=== PATIENT | male | born 1960 | race Caucasian/White ===

== ENCOUNTER 2023-03-28 06:02 | Inpatient (IN) ==
--- NOTE | 2023-03-12 11:03 | PAT Medication Instructions ---
Medication Instructions Date of Service March 12, 2023 Home Medications aspirin 81 mg tablet,delayed release 81 mg PO QAM atorvastatin 20 mg tablet 20 mg PO HS buspirone 10 mg tablet 10 mg PO TID calcium carbonate 600 mg calcium (1,500 mg) tablet (Calcium) 600 mg PO QAM cholecalciferol (vitamin D3) 25 mcg (1,000 unit) capsule (Vitamin D3) 25 mcg PO PM citalopram 20 mg tablet 20 mg PO QAM cyanocobalamin (vitamin B-12) 1,000 mcg/mL injection solution 1,000 mcg subcut MONTHLY diltiazem HCl 120 mg tablet 120 mg PO BID ferrous sulfate 325 mg (65 mg iron) tablet 325 mg PO PM gabapentin 800 mg tablet 800 mg PO QID hydrocodone 5 mg-acetaminophen 325 mg tablet 1 tab PO HS lisinopril 20 mg tablet 20 mg PO QAM multivitamin 1 tab PO BID pantoprazole 40 mg tablet,delayed release 40 mg PO QAM ranolazine 500 mg tablet,extended release,12 hr 500 mg PO BID rivaroxaban 20 mg tablet (Xarelto) 20 mg PO HS Continue as directed cyanocobalamin (vitamin B-12) 1,000 mcg/mL injection solution 1,000 mcg subcut MONTHLY ASK your prescriber and surgeon rivaroxaban 20 mg tablet (Xarelto) 20 mg PO HS DO NOT take the morning of surgery calcium carbonate 600 mg calcium (1,500 mg) tablet (Calcium) 600 mg PO QAM lisinopril 20 mg tablet 20 mg PO QAM multivitamin 1 tab PO BID Take morning of surgery With a small sip of water, OTHERWISE NOTHING TO EAT OR DRINK AFTER MIDNIGHT: aspirin 81 mg tablet,delayed release 81 mg PO QAM (unless surgeon directed otherwise) buspirone 10 mg tablet 10 mg PO TID citalopram 20 mg tablet 20 mg PO QAM diltiazem HCl 120 mg tablet 120 mg PO BID gabapentin 800 mg tablet 800 mg PO QID pantoprazole 40 mg tablet,delayed release 40 mg PO QAM ranolazine 500 mg tablet,extended release,12 hr 500 mg PO BID Take evening before surgery atorvastatin 20 mg tablet 20 mg PO HS buspirone 10 mg tablet 10 mg PO TID cholecalciferol (vitamin D3) 25 mcg (1,000 unit) capsule (Vitamin D3) 25 mcg PO PM diltiazem HCl 120 mg tablet 120 mg PO BID ferrous sulfate 325 mg (65 mg iron) tablet 325 mg PO PM gabapentin 800 mg tablet 800 mg PO QID hydrocodone 5 mg-acetaminophen 325 mg tablet 1 tab PO HS multivitamin 1 tab PO BID ranolazine 500 mg tablet,extended release,12 hr 500 mg PO BID Other Notes If you have any questions please call us at [phone] or [phone] or [phone] or [phone]
--- NOTE | 2023-03-14 10:16 | Anesthesiology Consultation ---
Date of Service March 14, 2023 Assessment & Plan (1) Encounter for pre-operative examination: - Infectious disease screening: Per assessment on 03/12/23: No known infectious disease contacts or current infectious disease symptoms. No noted recent Covid positive test result. - Cardiology visit (03/07/23): " He anticipates having back surgery sometime this year. They are also working out the renal cyst and hydronephrosis that was incidentally found on MRI and ultrasound.. Patient, from a cardiovascular standpoint.. Stable condition. Follow-up in 6 months." - PCP visit (03/15/23): "Low risk" - PCP visit (02/05/23): " Benign essential hypertension stable, continue present meds.. Hydronephrosis, left.. Incidental finding on recent ultrasound. May be related to prostate hypertrophy. Will get CT to assess per radiology recommendation." > Spoke with patient- CT Abdomen/Pelvis is scheduled for 03/23 ([facility])- Awaiting report. Chart Review Chart Review: Patient seen in Pre Admission Testing Teaching & Discussion Pre-Anesthesia Teaching/Discussion Notes: Instructed NPO after midnight before surgery,except medications with 15 cc of water. Medication instructions provided according to the PAT guidelines. History Surgery Operation Date: 03/28/23 10:05 Proposed Procedures p L2-S1 Decomprssion and Fusion Spinal Cord Monitoring - Travis De Leon DO Height/Weight Height: 5 ft 9 in Weight: 117.2 kg Allergies Allergy/AdvReac Type Severity Reaction Status Date / Time No Known Allergies Allergy Verified 03/12/23 07:48 Medications Home Medications Medication Instructions Recorded Confirmed Last Taken aspirin 81 mg tablet,delayed 81 mg PO QAM 03/12/23 03/12/23 Unknown release atorvastatin 20 mg tablet 20 mg PO HS 03/12/23 03/12/23 Unknown buspirone 10 mg tablet 10 mg PO TID 03/12/23 03/12/23 Unknown calcium carbonate 600 mg calcium 600 mg PO QAM 03/12/23 03/12/23 Unknown (1,500 mg) tablet (Calcium) cholecalciferol (vitamin D3) 25 25 mcg PO PM 03/12/23 03/12/23 Unknown mcg (1,000 unit) capsule (Vitamin D3) citalopram 20 mg tablet 20 mg PO QAM 03/12/23 03/12/23 Unknown cyanocobalamin (vitamin B-12) 1,000 mcg subcut MONTHLY 03/12/23 03/12/23 Unknown 1,000 mcg/mL injection solution diltiazem HCl 120 mg tablet 120 mg PO BID 03/12/23 03/12/23 Unknown ferrous sulfate 325 mg (65 mg 325 mg PO PM 03/12/23 03/12/23 Unknown iron) tablet gabapentin 800 mg tablet 800 mg PO QID 03/12/23 03/12/23 Unknown hydrocodone 5 mg-acetaminophen 325 1 tab PO HS 03/12/23 03/12/23 Unknown mg tablet lisinopril 20 mg tablet 20 mg PO QAM 03/12/23 03/12/23 Unknown multivitamin 1 tab PO BID 03/12/23 03/12/23 Unknown pantoprazole 40 mg tablet,delayed 40 mg PO QAM 03/12/23 03/12/23 Unknown release ranolazine 500 mg tablet,extended 500 mg PO BID 03/12/23 03/12/23 Unknown release,12 hr rivaroxaban 20 mg tablet (Xarelto) 20 mg PO HS 03/12/23 03/12/23 Unknown Past Medical History Medical History Anemia Anxiety Aortic valve stenosis Echo 09/2022: Mild to moderate aortic stenosis (TYRESE 1.16-1.23cm2) Follows with Dr. 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) Hydronephrosis Hyperlipidemia Hypertension Osteoarthritis Pulmonary embolism 1998, felt "due to obesity" Exercise / Class Metabolic Activity III < 4 Walking/Shop/Light housework Past Family History Family History Mother Diabetes Past Surgical History Surgical History History of appendectomy History of cardiac cath 2014 > no stents 2008 > 2 stents History of carpal tunnel release bilat History of cholecystectomy 2019- hospitalized 34 days due to complicatons/nicked bile duct [facility] > got DVT as result of prolonged hospital stay History of colonoscopy 2020 History of esophagogastroduodenoscopy (EGD) History of Navneet-en-Y gastric bypass 2000 > lost 400 lbs since History of tonsillectomy History of tooth extraction History of total knee replacement R/L Hx of CABG 2009 > 2 vessels Hx of hernia repair left inguinal x 3, umblical x1 Hx of shoulder replacement bilat Past Anesthesia History No Hx of Anesthesia Complications and No Family Hx of Anesthesia Complications History of PONV No Hx of PONV and No Hx of Motion Sickness Social History Smoking Status: Current every day smoker Smoking cigarettes per day: less than 1/2 PPD Do You Dip or Chew Tobacco: No Hx Alcohol Use: No (No ETOH x 1+ years) Hx Substance Use: Yes substance use type: marijuana Substance Use Type Other:: very rare use > once in last 30 days but very rare Last Used Substance: Unknown Review of Systems Patient denies chest pain, shortness of breath, fever, chills, cough, wheezing, palpitations. Physical Exam Vital Signs VITALS BP 139/71 P 57 TEMP 98.3 SP02 97%RA RESP 18 PHYSICAL Full cervical extension range of motion. Full TMJ range of motion. TMD 3.5 finger breaths Mallampati Score 2 Dentition: 8 teeth remaining on lower, lower partial, full upper denture Lungs: clear throughout to auscultation Cardiac: regular rate and rhythm, II-III/ systolic murmur with carotid radiation Spine: normal Carotid arteries: negative bruit Extremities: + LE lymphedema Lab Results Anesthesia Preop Results Results Anesthesia Widget: WBC 5.58 K/ul (4.8-10.8) 03/14/23 Hgb 14.0 g/dl (14.0-18.0) 03/14/23 Hct 40.1 % (42.0-52.0) L 03/14/23 Plt 217 K/uL (130-400) 03/14/23 Na 137 mmol/L (136-145) 03/14/23 K 4.5 mmol/L (3.5-5.1) 03/14/23 Cl 106 mmol/L (98-107) 03/14/23 CO2 25 mmol/L (21-32) 03/14/23 BUN 12 mg/dl (6-23) 03/14/23 Creat 0.72 mg/dl (0.6-1.4) 03/14/23 Glucose Level 105 mg/dl (70-99(Fasting)) H 03/14/23 PT 11.8 Seconds (9.0-12.0) 03/14/23 PTT 33 Seconds (21-31) H 03/14/23 INR 1.1 (0.9-1.1) 03/14/23 Urine Color Yellow 03/14/23 Urine Appearance Clear (Clear) 03/14/23 Urine pH 6.0 (4.5-7.5) 03/14/23 Urine Specific [place] 1.006 (1.000-1.030) 03/14/23 Urine Protein Negative (Negative) 03/14/23 Urine Glucose (UA) Negative (Negative) 03/14/23 Urine Ketones Negative (Negative) 03/14/23 Urine Blood Negative (Negative) 03/14/23 Urine Nitrite Negative (Negative) 03/14/23 Urine Bilirubin Negative (Negative) 03/14/23 Urine Urobilinogen Negative (Negative) 03/14/23 Urine Leukocyte Esterase Negative (Negative) 03/14/23 Blood Type B Positive 03/14/23 Antibody Screen NEGATIVE 03/14/23 Testing Electrocardiogram Date: 03/14/23 SB with first degree AVB at 57bpm. NS TWA. Chest X-Ray Date: 01/07/23 Evidence of prior CABG. Lungs appear clear. Bilateral shoulder hardware is incompletely imaged. The lungs are hyperinflated and hyperlucent, secondary to emphysema. Multiple old leftsided rib fractures. Impression: Clear lungs. Stress Test Date: 10/18/22 Type: nuclear No evidence of reversible ischemia. No fixed or reversible defects noted. EF 57%.
[2023-03-28] MEDS ORDERED: MIDAZOLAM HCL 1 MG/ML 2ML VIAL ONE (06:57)
[2023-03-28] MEDS ORDERED: fentaNYL citrate PF 100 MCG/2 ML VIAL ONE (06:57)
[2023-03-28] MEDS ORDERED: DexMEDEtomidine HCL IV 100 MCG/ML VIAL IV ONE (07:00)
[2023-03-28] MEDS: LR 60ML/HR IV SCH (07:12)
[2023-03-28] MEDS ORDERED: ATROPINE SULFATE 0.1 MG/ML 10ML SYR IV PRN (07:22)
[2023-03-28] MEDS ORDERED: ePHEDrine sulfate 50 MG/ML AMP IV PRN (07:22)
[2023-03-28] MEDS ORDERED: ONDANSETRON INJ 2 MG/ML 2 ML VIAL IV PRN ×2 (07:22→13:46)
[2023-03-28] MEDS ORDERED: KETAMINE HCL 10MG/ML SYR ONE (07:23)
[2023-03-28] MEDS: GABAPENTIN 600 MG DOSE PO SCH (07:27)
[2023-03-28] MEDS: LR 15ML/HR IV SCH (07:27)
[2023-03-28] MEDS: ACETAMINOPHEN 500 MG TAB PO SCH (07:27)
[2023-03-28] MEDS: CeleBREX 200 MG CAP PO SCH (07:27)
--- NOTE | 2023-03-28 07:44 | History & Physical Bridge Note ---
Date of Service March 28, 2023 History & Physical Bridge Note I have examined the patient, reviewed the History & Physical and in the interval since the performance of the History & Physical I have noted the following changes of clinical significance: no changes noted
--- NOTE | 2023-03-28 07:45 | History & Physical Report ---
Date of Service March 28, 2023 Assessment & Plan (1) Neurogenic claudication due to lumbar spinal stenosis: Plan: L2-S1 decompression and fusion History of Present Illness Chief Complaint: Back and bilateral leg pain Primary Care Provider: Rhys Tucker MD This is a 63-year-old male who presents for chronic persistent back and leg pain and failing since course of nonoperative care is here for surgical invention. Allergies Allergy/AdvReac Type Severity Reaction Status Date / Time No Known Allergies Allergy Verified 03/28/23 06:52 Home Medications Medication Instructions Recorded Confirmed Type aspirin 81 mg tablet,delayed 81 mg PO QAM 03/12/23 03/28/23 History release atorvastatin 20 mg tablet 20 mg PO HS 03/12/23 03/28/23 History buspirone 10 mg tablet 10 mg PO TID 03/12/23 03/28/23 History calcium carbonate 600 mg calcium 600 mg PO QAM 03/12/23 03/28/23 History (1,500 mg) tablet (Calcium) cholecalciferol (vitamin D3) 25 25 mcg PO BID 03/12/23 03/28/23 History mcg (1,000 unit) capsule (Vitamin D3) citalopram 20 mg tablet 20 mg PO QAM 03/12/23 03/28/23 History cyanocobalamin (vitamin B-12) 1,000 mcg subcut MONTHLY 03/12/23 03/28/23 History 1,000 mcg/mL injection solution diltiazem HCl 120 mg tablet 120 mg PO BID 03/12/23 03/28/23 History ferrous sulfate 325 mg (65 mg 325 mg PO PM 03/12/23 03/28/23 History iron) tablet gabapentin 800 mg tablet 800 mg PO QID 03/12/23 03/28/23 History hydrocodone 5 mg-acetaminophen 325 1 tab PO HS 03/12/23 03/28/23 History mg tablet lisinopril 20 mg tablet 20 mg PO QAM 03/12/23 03/28/23 History multivitamin 1 tab PO BID 03/12/23 03/28/23 History pantoprazole 40 mg tablet,delayed 40 mg PO QAM 03/12/23 03/28/23 History release ranolazine 500 mg tablet,extended 500 mg PO BID 03/12/23 03/28/23 History release,12 hr rivaroxaban 20 mg tablet (Xarelto) 20 mg PO HS 03/12/23 03/28/23 History Past Med/Surg History Medical History Anemia Anxiety Aortic valve stenosis Echo 09/2022: Mild to moderate aortic stenosis (TYRESE 1.16-1.23cm2) Follows with Dr. 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) Hydronephrosis Hyperlipidemia Hypertension Osteoarthritis Pulmonary embolism 1998, felt "due to obesity" Surgical History History of appendectomy History of cardiac cath 2014 > no stents 2008 > 2 stents History of carpal tunnel release bilat History of cholecystectomy 2019- hospitalized 34 days due to complicatons/nicked bile duct [facility] > got DVT as result of prolonged hospital stay History of colonoscopy 2020 History of esophagogastroduodenoscopy (EGD) History of Navneet-en-Y gastric bypass 2000 > lost 400 lbs since History of tonsillectomy History of tooth extraction History of total knee replacement R/L Hx of CABG 2009 > 2 vessels Hx of hernia repair left inguinal x 3, umblical x1 Hx of shoulder replacement bilat Family History Mother Diabetes Social History Smoking Status: Current every day smoker Tobacco Type: Cigarettes Cigarettes Per Day: less than 1/2 PPD; Second Hand Exposure: No; Do You Dip or Chew Tobacco: No; Tobacco Cessation Education Requested by Patient: No Hx Alcohol Use: No (No ETOH x 1+ years) Hx Substance Use: Yes Last Used Substance: Unknown Substance Use Type Other:: very rare use > once in last 30 days but very rare Preferred Language: Indian Communication Ability: Effective Precision Lens Polisher Required: No Beliefs That Will Affect Care: None Current Living Situation: Spouse Other Information That Helps Us Care for You: No Feels Safe at Home: Yes Safety Concerns: Feels Safe At This Time Assistive Devices: Contacts, Denture - Upper and Denture - Lower Physical Exam Physical Exam: Patient is alert and oriented heart regular in rhythm Lungs clear Results & Data Results & Data Vital Signs (Past 12 Hours) Vital Signs Temp Pulse Resp BP Pulse Ox O2 Del Method 03/28/23 06:35 36.8 C 54 L 20 107/58 L 94 Room Air
[2023-03-28] MEDS: ceFAZolin 2000MG 2,000 MG/15 ML SYR IV SCH ×2 (07:53→15:47)
[2023-03-28] MEDS ORDERED: ePHEDrine sulfate 50 MG/5 ML SYR ONE ×2 (08:00→08:41)
[2023-03-28] MEDS ORDERED: HYDROmorphone INJ 2 MG/ML SYR/VIAL ONE (08:29)
[2023-03-28] MEDS ORDERED: ROCURONIUM BROMIDE 10 MG/ML 5 ML VIAL IV ONE ×2 (08:41→09:39)
[2023-03-28] MEDS ORDERED: LARYING-O-JET KIT (LTA) ONE (08:41)
[2023-03-28] MEDS ORDERED: PROPOFOL IV EMULSION 10 MG/ML 20 ML VIAL IV ONE (08:41)
[2023-03-28] MEDS ORDERED: VASOPRESSIN 20 UNIT/ML VIAL ONE (08:41)
[2023-03-28] MEDS ORDERED: DEXAMETHASONE SOD INJ 4 MG/ML VIAL ONE (08:41)
[2023-03-28] MEDS ORDERED: LIDOCAINE 2% 2 ML VIAL/AMP(20MG/ML) INFIL ONE (08:41)
[2023-03-28] MEDS ORDERED: ONDANSETRON INJ 2 MG/ML 2 ML VIAL ONE ×2 (08:41→11:30)
[2023-03-28] MEDS ORDERED: PHENYLEPHRINE 100MCG/ML 10ML SYR IV ONE (08:41)
[2023-03-28] MEDS ORDERED: PHENYLEPHRINE HCL 10 MG/ML VIAL ONE (08:41)
[2023-03-28] MEDS: BUPIVACAINE/EPINEPHRINE 0.5% MPF 1:200,000 30 ML VIAL ONE (08:58)
[2023-03-28] MEDS: ceFAZolin 330 MG/ML 1 GM VIAL ONE (08:58)
[2023-03-28] MEDS ORDERED: SUGAMMADEX SODIUM 200 MG/2 ML VIAL IV ONE (10:48)
--- NOTE | 2023-03-28 11:34 | Operative Report ---
Post Operative Report Pre & Post Diagnosis Operation Date: 03/28/23 07:45 Pre-Op Diagnosis: Spinal Stenosis Lumbar Region with Neurogenic Claudication Post-Op Diagnosis: Spinal Stenosis Lumbar Region with Neurogenic Claudication I identified the patient and participated in the time-out.: Yes Procedure Operation Date: 03/28/23 07:45 Actual Procedures #1 lumbar decompression bilaterally facetectomies and foraminotomies L2-L3, L3- L4, L4-5 and L5-S1. #2 posterior spinal fusion L2-S1. #3 placed posterior segmental instrumentation L2-S1. #4 interbody fusion L4-5 L5-S1. #5 placement spiral 10 x 26 mm L4-5 and 12 x 26 mm x 2 at L5-S1. #6 placement locally harvested morselized autograft and posterior gutters. #7 placement of infuse collagen sponge combined with Koros in the posterior gutters interbody space. Surgeon Travis De Leon, DO Support Assistant Kailyn Arora Estimated Blood Loss 650 Findings See Below Patient is 5 foot 9 weighing over 115 kg with a BMI in excess of 35. This combined with an EBL of greater than 650 cc created significant technical difficulty. This at least 50% increased operative time. Specimens None Indications This is a 63-year-old male presents problems diagnosis the failing course of nonoperative care is here for surgical invention. Description of Procedure Patient was met with identified informed consent obtained. Patient was then taken the operative suite underwent patient placed in a prone position on the [place] table topicals and frame. All bony promises well-padded eyes inspected to ensure no external precipice spinal. This point lumbar spine was prepped and draped in a sterile fashion. Sharp dissection with the assistance bradycardia form down to and exposing the lamina and transverse processes of L2-L3 L4-5 and sacral ala bilaterally. From caudal to cephalad fashion complete laminectomy of L5 L4 L3 and L2 was performed including bilateral medial facetectomies and foraminotomies addressing severe spinal stenosis. Pedicle screws were then placed in L2-L3 L4-5 and S1 levels bilaterally with assistance of fluoroscopy and appropriate size deepa contoured and placed. Bilateral transforaminal approach on the right discectomy L5-S1 was performed endplates guarded to subcortical and bone and a 12 x 26 mm Spira cage filled with Koros bone graft tapped in position. Then proceeded to the left transforaminal region at L5-S1 completed the discectomy curetted the endplates to subcortical bleeding bone and placed a second 12 x 26 mm Spira cage filled with Koros into position. Then proceeded to L4-L5 and bilateral transforaminal approach the left we discectomy performed endplates guarded to subcortical bleeding bone and 11 x 26 mm Spira cage filled with Koros tapped in position. Process rods and locked in position bilaterally. The transverse processes of L2-L3 L4-5 and the sacral ala burred to subcortical bleeding bone. Infuse collagen sponge combined with Koros and locally harvested morselized graft placed in posterior gutters. 15 round DERECK inserted. Incision was then closed with 1 Vicryl fascia 2-0 Vicryl subcutaneously and 4 Monocryl for fascial closure. Steri-Strips sterile dressings placed. Patient waken taken to PACU in stable condition. Please note spinal cord monitoring was utilized at the procedure no changes noted. Lastly Kailyn Arora was present at the entire surgeon with the patient positioning complex portion of the surgeon fashion closure. I attest to the content of the Intraoperative Record and any orders documented therein. Any exceptions are noted below.
--- NOTE | 2023-03-28 11:43 | Fluoroscopy Report ---
FL lumbar spine 2-3V CLINICAL HISTORY: L2-S1 Decompression/fusion COMPARISON STUDY: None. FLUOROSCOPY TIME: 40 seconds. Ka, r: 37.03 mGy FLUOROSCOPIC IMAGES: 5 FINDINGS: Fluoroscopy was provided during posterior decompression. L4-L5 and L5-S1 discectomies with interbody spacer placement. There are bilateral pedicle screws at the L2, L3, L4, L5 and S1 levels. I nterconnecting rods are present. Hardware is intact. IMPRESSION: Fluoroscopy provided during L2-S1 decompression and fusion with L4-L5 and L5-S1 discecto mies. ACT 112: Negative or not required by law. Electronically signed by: Donovan Rachel M.D. 03/28/2023 11:42 AM
[2023-03-28] MEDS: FLOSEAL HEMOSTATIC MATRIX 10ML TOP ONE (11:47)
[2023-03-28] MEDS: HYDROmorphone INJ 1 MG/ML SYRINGE IV PRN (12:02)
--- NOTE | 2023-03-28 13:04 | Anesthesiology Progress Note ---
Date of Service March 28, 2023 Anesthesia Post Procedure Vital Signs Vital Signs: Temp Pulse Resp BP Pulse Ox O2 Del Method O2 Flow Rate 03/28/23 12:50 76 17 105/64 96 Nasal Cannula 3 03/28/23 12:40 74 12 113/65 95 Nasal Cannula 3 03/28/23 12:30 71 12 104/66 95 Nasal Cannula 3 03/28/23 12:20 75 15 116/64 92 Nasal Cannula 3 03/28/23 12:10 77 20 110/58 L 97 Nasal Cannula 3 03/28/23 12:00 73 12 114/64 98 Oxymask 03/28/23 11:50 36.3 C L 77 13 123/66 98 Oxymask 03/28/23 06:35 36.8 C 54 L 20 107/58 L 94 Room Air Pain Intensity Lower Back: Pain Intensity: 5 Transfer of Care Handoff Completed per policy Notes Mental Status: alert / awake / arousable Patient Amnestic to Procedure: Yes Nausea / Vomiting: adequately controlled Pain: adequately controlled Airway Patency, RR, SpO2: stable & adequate BP & HR: stable & adequate Hydration State: stable & adequate Anesthetic Complications: no major complications apparent and Pt Satisfied with anesthetic care
[2023-03-28] MEDS ORDERED: ACETAMINOPHEN 1,000 MG/100 ML VIAL IV PRN (13:46)
[2023-03-28] MEDS ORDERED: diphenhydrAMINE Capsule 25 MG CAP PO PRN (13:46)
[2023-03-28] MEDS ORDERED: hydrOXYzine HCl 25 MG TAB PO PRN (13:46)
[2023-03-28] MEDS ORDERED: ALUMINUM/MAGNESIUM SUSP 30 ML UDC PO PRN (13:46)
[2023-03-28] MEDS ORDERED: DO NOT ADMINISTER PNEUMOCOCCAL VACCINE PRN (13:46)
[2023-03-28] MEDS ORDERED: HYDROmorphone INJ 0.5 MG/0.5 ML SYR IV PRN (13:46)
[2023-03-28] MEDS ORDERED: DO NOT ADMINISTER FLU VACCINE PRN (13:46)
[2023-03-28] MEDS ORDERED: traMADol HCL 50 MG TABLET PO PRN (13:46)
[2023-03-28] MEDS ORDERED: HYDROmorphone INJ 1 MG/ML SYRINGE IV PRN (13:46)
[2023-03-28] MEDS ORDERED: PROMETHAZINE HCL 12.5 MG in SODIUM CHLORIDE 0.9% 50 ML IV PRN (13:46)
[2023-03-28] MEDS ORDERED: METOCLOPRAMIDE HCL INJ 5 MG/ML 2 ML VIAL IV PRN (13:46)
[2023-03-28] MEDS ORDERED: LORazepam 0.5 MG in SYRINGE 0.25 ML IV PRN (13:46)
[2023-03-28] MEDS ORDERED: LORazepam 0.5 MG TAB PO PRN (13:46)
[2023-03-28] MEDS ORDERED: MAGNESIUM HYDROXIDE SUSP 30 ML UDC PO PRN (13:46)
[2023-03-28] MEDS ORDERED: NALOXONE HCL 0.4 MG/1 ML VIAL/CARP IV PRN (13:46)
[2023-03-28] MEDS ORDERED: ONDANSETRON 4 MG OD TAB PO PRN (13:46)
[2023-03-28] MEDS ORDERED: FAMOTIDINE 20 MG TAB PO PRN (13:46)
[2023-03-28] MEDS ORDERED: bisacodyL 10 MG SUPP PR PRN (13:46)
[2023-03-28] MEDS ORDERED: SOD PHOSPHATE/SOD BIPHOSPHATE ENEMA 132 ML BTL PR PRN (13:46)
[2023-03-28] MEDS: oxyCODONE HCL IR 5 MG TAB (IMMEDIATE RELEASE) PO PRN (14:31)
[2023-03-28] MEDS: LACTATED RINGER'S 1,000 ML IV SCH (15:16)
[2023-03-28] MEDS: GABAPENTIN 800 MG TAB PO SCH (15:47)
[2023-03-28] MEDS: busPIRone 5 MG TAB PO SCH (15:47)
--- NOTE | 2023-03-28 17:53 | Hospitalist Consultation ---
Date of Consultation March 28, 2023 Assessment & Plan (1) Status post lumbar spinal fusion: -Patient is currently Post-op day #0 S/P L2-S1 Decompression and Fusion with Dr. De Leon -Pain control, perioperative abx, DVT PPX, and IV fluids per the primary team -Patient was noted to have approximately 650 CC of EBL per the operative report and is having increased drainage at the surgical site per nursing staff, primary team has been made aware -He has been stable since arrival to the floor and has been able to ambulate with the use of a rolling walker without issue -He had as dose of 81 mg Aspirin this am and is scheduled to be give 81 mg Aspirin tomorrow per the primary team's orders -Patient is high risk for blood clots with his previous hx of DVT/PE and current smoking status, would recommend restarting Xarelto when he is stable from a bleeding perspective -Agree with AM CBC and BMP tomorrow, we will follow -Please reach out with any questions or concerns, medicine will continue to follow (2) DVT (deep venous thrombosis): -Previous DVT in 2019; see HPI -Continue DVT PPX per primary team orders -Monitor closely for post-operative DVT moving forward and restart Xarelto when patient is stable from a bleeding risk (3) CAD (coronary artery disease): -S/P CABG x 2 in 2009 -Denies recent chest pain -Continue Aspirin and statin (4) Hypertension: -Stable -Will hold home lisinopril for now to avoid post-operative hypotension -Will continue BID diltiazem (5) Hyperlipidemia: -Conitnue statin (6) Tobacco abuse: -Will order Nicotine patches -Continue to stress the importance of cessation -Incentive spirometry and prn albuterol ordered at the time of the consult Plan The patient was discussed with Dr. Camarena at the time of the consult Supervising Physician Co-Signing Physician Notes I personally saw and examined the patient. I verified all medrano points and agree with Esdras Castillo PA-C with the following exceptions and/or additions: 63-year-old male postop day 0 lumbar decompression and posterior spinal fusion. EBL 650ml. O/E HS RRR, FLEX loudest in LUSB (known per patient), Chest CTAB, Abdo SNT A/P VTE/bowel/pain management per primary orthopedic team. No change to plan as abov e History of Present Illness Reason for Consultation: Post-op medical management Requesting Physician: Travis De Leon DO Attending Physician: Dr. Amarjit Camarena History of Present Illness Mal is a 63 year old male with a PMH significant for Aortic stenosis, DVT in 2019 after a prolonged and complicated hospitalization (Now on Xarelto), HTN, BPH, CAD S/P CABG X 2 in 2009, depression, and current tobacco abuse who presented to the [facility] OR on 03/28/23 for L2-S1 Decompression and Fusion, Spinal Cord Monitoring with Dr. De Leon. Per the operative report, EBL was listed as 650 cc, anesthesia type was not listed, and there were not reported intraoperative complications. At the time of the exam the patient was sitting on the side of his bed, in no acute distress. He is currently having his surgical site re-bandaged as he had increased bleeding post-op. His nurses confirm that the surgical team was made aware of this. He has otherwise been doing well post-op. He denies new or worsening neurologic symptoms since his surgery earlier today. When asked, he states that he has been smoking 1PPD for the past 7 years but wants to start smoking cessation today. His CABG was in 2009, he did have a negative stress echo for cardiac clearance prior to his surgery. He states that his DVT in 2019 occurred after a complicated cholecystectomy. He states that he was hospitalized for 3 weeks and was very sedentary after. At that time he had been on aspirin and plavix; he was switched to Xarelto after the DVT. He took his aspirin, buspar, diltiazem, pantoprazole this am but has been holding his Xarelto as recommended. He currently denies fever, chills, chest pain, SOB, cough, abd pain, nausea, vomiting, diarrhea, dysuria, hematuria, melena. Please refer to Dr. Camarena's attestation for any changes to the treatment plan Allergies Allergy/AdvReac Type Severity Reaction Status Date / Time No Known Allergies Allergy Verified 03/28/23 06:52 Home Medications Medication Instructions Recorded Confirmed Type aspirin 81 mg tablet,delayed 81 mg PO QAM 03/12/23 03/28/23 History release atorvastatin 20 mg tablet 20 mg PO HS 03/12/23 03/28/23 History buspirone 10 mg tablet 10 mg PO TID 03/12/23 03/28/23 History calcium carbonate 600 mg calcium 600 mg PO QAM 03/12/23 03/28/23 History (1,500 mg) tablet (Calcium) cholecalciferol (vitamin D3) 25 25 mcg PO BID 03/12/23 03/28/23 History mcg (1,000 unit) capsule (Vitamin D3) citalopram 20 mg tablet 20 mg PO QAM 03/12/23 03/28/23 History cyanocobalamin (vitamin B-12) 1,000 mcg subcut MONTHLY 03/12/23 03/28/23 History 1,000 mcg/mL injection solution diltiazem HCl 120 mg tablet 120 mg PO BID 03/12/23 03/28/23 History ferrous sulfate 325 mg (65 mg 325 mg PO PM 03/12/23 03/28/23 History iron) tablet gabapentin 800 mg tablet 800 mg PO QID 03/12/23 03/28/23 History hydrocodone 5 mg-acetaminophen 325 1 tab PO HS 03/12/23 03/28/23 History mg tablet lisinopril 20 mg tablet 20 mg PO QAM 03/12/23 03/28/23 History multivitamin 1 tab PO BID 03/12/23 03/28/23 History pantoprazole 40 mg tablet,delayed 40 mg PO QAM 03/12/23 03/28/23 History release ranolazine 500 mg tablet,extended 500 mg PO BID 03/12/23 03/28/23 History release,12 hr rivaroxaban 20 mg tablet (Xarelto) 20 mg PO HS 03/12/23 03/28/23 History oxycodone 5 mg tablet 5 mg PO Q6H PRN pain #30 tabs 03/29/23 Rx tramadol 50 mg tablet 50 mg PO Q6H PRN pain, moderate 03/29/23 Rx #30 tabs Patient History Medical History (Updated 03/29/23 @ 17:20 by Kellie Castañeda MD) CAD (coronary artery disease) CABG x2 (2009) History of infection with vancomycin-resistant Enterococcus Hx VRE ([facility] ) Anemia Pulmonary embolism 1998, felt "due to obesity" Chronic acquired lymphedema Degenerative disc disease Osteoarthritis Hydronephrosis GERD (gastroesophageal reflux disease) Anxiety Depression Aortic valve stenosis Echo 09/2022: Mild to moderate aortic stenosis (TYRESE 1.16-1.23cm2) Follows with Dr. Matos at [facility] DVT (deep venous thrombosis) 2019, r/t surgical complication/prolonged hospital stay Hyperlipidemia Hypertension History of COVID-19 02/2021, not hospitalized Surgical History (Updated 03/28/23 @ 18:26 by Esdras Castillo PA-C) History of carpal tunnel release bilat History of tonsillectomy History of appendectomy Hx of hernia repair left inguinal x 3, umblical x1 History of esophagogastroduodenoscopy (EGD) History of colonoscopy 2020 History of tooth extraction Hx of shoulder replacement bilat History of total knee replacement R/L History of Navneet-en-Y gastric bypass 2000 > lost 400 lbs since History of cardiac cath 2014 > no stents 2008 > 2 stents History of cholecystectomy 2019- hospitalized 34 days due to complicatons/nicked bile duct [facility] > got DVT as result of prolonged hospital stay Hx of CABG 2009 > 2 vessels Family History Mother Diabetes Social History Smoking Status: Current every day smoker Tobacco Type: Cigarettes Cigarettes Per Day: less than 1/2 PPD; Second Hand Exposure: No; Do You Dip or Chew Tobacco: No; Hx Alcohol Use: No (No ETOH x 1+ years) Hx Substance Use: Yes Last Used Substance: Unknown Substance Use Type Other:: very rare use > once in last 30 days but very rare Preferred Language: Serbian Communication Ability: Effective Recreation Program Coordinator Required: No Beliefs That Will Affect Care: None Current Living Situation: Spouse Feels Safe at Home: Yes Assistive Devices: Cane and Walker Physical Exam Physical Exam: Physical Exam: General: In no acute distress, stated age, chronically ill appearing but non- toxic HEENT: Normocephalic, atraumatic, no scleral icterus, pupils around round, symmetrical, and reactive to light, moist mucus membranes, trachea midline, no thyromegaly Chest/Pulm: No respiratory distress, symmetrical chest expansion, scattered expiratory wheezing Cardiac: RRR, 3/6 systolic murmur noted Abdomen: Negative for ascites and bruising, normoactive bowel sounds, soft, non-tender to palpation throughout : Bailon cath in place, currently draining clear, yellow urine Musculoskeletal: Lower lumbar surgical site is currently bandaged with the lower 1/3 of the bandage soaked in blood, drain is currently in place and approximately 1/2 full Extremities: Radial, dorsalis pedis, and posterior tibial pulses are intact and symmetrical, no edema [facility] Skin: No other trauma noted on exam Neuro: Alert and oriented to person, place, month, year, and president, no focal defects, no tremors noted, intact and symmetrical sensation and motor function in the [facility] Psych: No acute distress, calm and cooperative during the exam Results & Data Results & Data Vital Signs (Past 12 Hours) Vital Signs Temp Pulse Pulse Resp BP Pulse Ox O2 Del Method 03/28/23 15:15 Nasal Cannula 03/28/23 15:06 37 C 68 18 122/63 97 Room Air 03/28/23 14:00 77 18 103/78 96 Nasal Cannula 03/28/23 13:45 82 16 108/57 L 95 Nasal Cannula 03/28/23 13:30 79 14 112/69 95 Nasal Cannula 03/28/23 13:20 69 14 105/64 92 Nasal Cannula 03/28/23 13:10 73 15 112/64 95 Nasal Cannula 03/28/23 13:00 36.4 C L 69 14 106/68 96 Nasal Cannula 03/28/23 12:50 76 17 105/64 96 Nasal Cannula 03/28/23 12:40 74 12 113/65 95 Nasal Cannula 03/28/23 12:30 71 12 104/66 95 Nasal Cannula 03/28/23 12:20 75 15 116/64 92 Nasal Cannula 03/28/23 12:10 77 20 110/58 L 97 Nasal Cannula 03/28/23 12:00 73 12 114/64 98 Oxymask 03/28/23 11:50 36.3 C L 77 13 123/66 98 Oxymask 03/28/23 06:35 36.8 C 54 L 20 107/58 L 94 Room Air O2 Flow Rate 03/28/23 15:15 1 03/28/23 15:06 03/28/23 14:00 2 03/28/23 13:45 2 03/28/23 13:30 2 03/28/23 13:20 2 03/28/23 13:10 2 03/28/23 13:00 2 03/28/23 12:50 3 03/28/23 12:40 3 03/28/23 12:30 3 03/28/23 12:20 3 03/28/23 12:10 3 03/28/23 12:00 03/28/23 11:50 03/28/23 06:35 Laboratory Results Abnormal lab results 03/28/23 Range/Units 06:34 Crossmatch See Detail Diagnostic Findings Lumbar Spine X-Ray 03/28/23 07:00 FL lumbar spine 2-3V CLINICAL HISTORY: L2-S1 Decompression/fusion COMPARISON STUDY: None. FLUOROSCOPY TIME: 40 seconds. Ka, r: 37.03 mGy FLUOROSCOPIC IMAGES: 5 FINDINGS: Fluoroscopy was provided during posterior decompression. L4-L5 and L5- S1 discectomies with interbody spacer placement. There are bilateral pedicle screws at the L2, L3, L4, L5 and S1 levels. Interconnecting rods are present. Hardware is intact. IMPRESSION: Fluoroscopy provided during L2-S1 decompression and fusion with L4- L5 and L5-S1 discectomies. ACT 112: Negative or not required by law. Electronically signed by: Donovan Rachel M.D. 03/28/2023 11:42 AM PG Care Time/CCT Total # of Minutes Spent Total Time Spent with Patient: Total time spent is greater than 50% in coordination of care (as documented) at patient's floor/unit and/or counseling patient: [place] [address] IN/OBS CONSULT LVL 3,45M Patient Type New Medical Decision Making High Complexity Diagnoses Status post lumbar spinal fusion Z98.1 DVT (deep venous thrombosis) I82.409 CAD (coronary artery disease) I25.10 Hypertension I10 Hyperlipidemia E78.5 Tobacco abuse Z72.0
[2023-03-28] MEDS ORDERED: ALBUTEROL 0.5% NEB SOLN 2.5 MG/0.5 ML VIAL NEB PRN (18:34)
[2023-03-28] MEDS: NICOTINE 21 MG/24 HR TDSY TD SCH (19:07)
[2023-03-28] MEDS: ATORVASTATIN 20 MG TAB PO SCH (20:01)
[2023-03-28] MEDS: MULTIVITAMIN TAB PO SCH (20:02)
[2023-03-28] MEDS: RANOLAZINE 500 MG ER TAB PO SCH (20:02)
[2023-03-28] MEDS: CHOLECALCIFEROL 25 MCG (1000 UNITS) TAB PO SCH (20:03)
[2023-03-28] MEDS: DOCUSATE SODIUM/SENNA 50/8.6MG TAB PO SCH (20:03)
[2023-03-28] MEDS: FERROUS SULFATE 325 MG TAB PO SCH (20:04)
[2023-03-28] MEDS: dilTIAZem HCL 120 MG CAPCR PO SCH (20:05)
[2023-03-28] MEDS: ACETAMINOPHEN 500 MG TAB PO PRN (23:00)
[2023-03-29] MEDS: POLYETHYLENE (MIRALAX) 17 GM PACK PO SCH (06:04)
[2023-03-29 06:53] LABS: Basophils # (auto) 0.01 K/uL (0.00-0.20); Basophils % (auto) 0.1 %; Eosinophils # (auto) 0.05 K/uL (0.00-0.50); Eosinophils % (auto) 0.5 %; Hematocrit (blood only) 29.8 % (42.0-52.0); Hemoglobin 10.2 g/dl (14.0-18.0); Immature Granulocytes # (auto) 0.02 K/uL (0.01-0.20); Immature Granulocytes % (auto) 0.2 %; Lymphocytes # (auto) 0.92 K/uL (1.20-3.40); Lymphocytes % (auto) 10.1 %; Mean Corpuscular Hemoglobin 32.6 pg (25.0-34.0); Mean Corpuscular Hgb Conc 34.2 g/dL (32.0-36.0); Mean Corpuscular Volume 95.2 fL (80.0-100.0); Mean Platelet Volume 10.2 fL (9.4-12.4); Monocytes # (auto) 0.64 K/uL (0.11-0.59); Neutrophils # (auto) 7.47 K/uL (1.40-6.50); Neutrophils % (auto) 82.1 %; Platelet Count 167 K/uL (130-400); RDW Coefficient of Variation 12.5 % (11.5-14.5); Red Blood Count 3.13 M/uL (4.70-6.10); White Blood Count 9.11 K/ul (4.8-10.8)
[2023-03-29 07:05] LABS: BUN Creatinine Ratio 20.6 (10-20); Creatinine Clr Calc Pharmacy 142.8 ml/min; Est GFR (African American) 119.5 ml/min; Est GFR (Non-African American) 103.1 ml/min; Potassium 3.8 mmol/L (3.5-5.1)
[2023-03-29] MEDS: SODIUM CHLORIDE 0.9% 500 ML IV SCH (07:51)
[2023-03-29] MEDS: dexAMETHasone 6 MG in SYRINGE 0 ML IV SCH (08:10)
[2023-03-29] MEDS: ASPIRIN 81 MG ECTAB PO SCH (08:16)
[2023-03-29] MEDS: CALCIUM CARBONATE 1250MG TAB PO SCH (08:17)
[2023-03-29] MEDS: PANTOprazole 40 MG TAB PO SCH (08:17)
[2023-03-29] MEDS: CITALOPRAM 20 MG TAB PO SCH (08:17)
--- NOTE | 2023-03-29 08:37 | Orthopedic Progress Note ---
Date of Service March 29, 2023 Assessment & Plan (1) Neurogenic claudication due to lumbar spinal stenosis: Plan: At this time initiate physical therapy monitor his DERECK operatively discharge home in the next few days. Admission and Anticipated Discharge Date Admission Date: March 28, 2023 Subjective Back pain controlled leg pain improved Physical Exam Physical Exam: Patient is sitting up in bed. Is comfortable. Is constricted testing. Results & Data Vital Signs (Past 12 Hours) Vital Signs Temp Pulse Resp BP BP Pulse Ox O2 Del Method 03/29/23 07:27 36.6 C 76 16 91/50 L 97 Room Air 03/29/23 04:16 37.1 C 69 18 97/55 L 96 Room Air 03/28/23 22:47 36.7 C 69 18 106/61 96 Room Air Queries Orthopedic Spine Obesity: Yes
--- NOTE | 2023-03-29 17:23 | Hospitalist Progress Note ---
Date of Service March 29, 2023 Assessment & Plan (1) Status post lumbar spinal fusion: Plan: -Patient is currently Post-op day #0 S/P L2-S1 Decompression and Fusion with Dr. De Leon -Pain control, perioperative abx, DVT PPX, and IV fluids per the primary team -Patient was noted to have approximately 650 CC of EBL per the operative report and is having increased drainage at the surgical site per nursing staff, primary team has been made aware -He has been stable since arrival to the floor and has been able to ambulate with the use of a rolling walker without issue -He had as dose of 81 mg Aspirin this am and is scheduled to be give 81 mg Aspirin tomorrow per the primary team's orders -Patient is high risk for blood clots with his previous hx of DVT/PE and current smoking status, would recommend restarting Xarelto when he is stable from a ble eding perspective -Agree with AM CBC and BMP tomorrow, we will follow -Please reach out with any questions or concerns, medicine will continue to follow (2) DVT (deep venous thrombosis): Plan: -Previous DVT in 2019; see HPI -Continue DVT PPX per primary team orders -Monitor closely for post-operative DVT moving forward and restart Xarelto when patient is stable from a bleeding risk (3) CAD (coronary artery disease): Plan: -S/P CABG x 2 in 2009 -Denies recent chest pain -Continue Aspirin and statin (4) Hypertension: Plan: -Stable -Will hold home lisinopril for now to avoid post-operative hypotension -Will continue BID diltiazem (5) Hyperlipidemia: Plan: -Conitnue statin (6) Tobacco abuse: Plan: -Will order Nicotine patches -Continue to stress the importance of cessation -Incentive spirometry and prn albuterol ordered at the time of the consult Plan The patient is doing well, had a low BP this morning, BP meds on hold, IV fluids were given. Monitor CBC, has blood loss anemia, start iron, transfuse PRN Admission and Anticipated Discharge Date Admission Date: March 28, 2023 Subjective Back pain controlled, report legs weakness Review of Systems Review of Systems: reports legs weakness, denies numbness, ambulated with PT Physical Exam Physical Exam: General: In no acute distress, stated age, chronically ill appearing but non- toxic HEENT: Normocephalic, atraumatic, no scleral icterus, pupils around round, symmetrical, and reactive to light, moist mucus membranes, trachea midline, no thyromegaly Chest/Pulm: No respiratory distress, symmetrical chest expansion, scattered expiratory wheezing Cardiac: RRR, 3/6 systolic murmur noted Abdomen: Negative for ascites and bruising, normoactive bowel sounds, soft, non- tender to palpation throughout : Bailon cath in place, currently draining clear, yellow urine Musculoskeletal: Lower lumbar surgical site is currently bandaged with the lower 1/3 of the bandage soaked in blood, drain is currently in place and approximately 1/2 full Extremities: Radial, dorsalis pedis, and posterior tibial pulses are intact and symmetrical, no edema noted in the [facility] Skin: No other trauma noted on exam Neuro: Alert and oriented to person, place, month, year, and president, no focal defects, no tremors noted, intact and symmetrical sensation and motor function in the [facility] Psych: No acute distress, calm and cooperative during the exam Results & Data Results & Data Vital Signs (Past 12 Hours) Vital Signs Temp Pulse Resp BP Pulse Ox O2 Del Method 03/29/23 15:22 36.7 C 72 16 108/62 96 Room Air 03/29/23 11:39 36.7 C 65 16 118/65 96 Room Air 03/29/23 07:27 36.6 C 76 16 91/50 L 97 Room Air Laboratory Results Abnormal lab results 03/29/23 Range/Units 05:26 RBC 3.13 L (4.70-6.10) M/uL Hgb 10.2 L (14.0-18.0) g/dl Hct 29.8 L (42.0-52.0) % Neut # (Auto) 7.47 H (1.40-6.50) K/uL Lymph # (Auto) 0.92 L (1.20-3.40) K/uL Hardin # (Auto) 0.64 H (0.11-0.59) K/uL BUN/Creatinine Ratio 20.6 H (10-20) Glucose 195 H (70-99(Fasting)) mg/dl Calcium 8.0 L (8.6-10.3) mg/dl PG Care Time/CCT Total # of Minutes Spent Total Time Spent with Patient: Total time spent is greater than 50% in coordination of care (as documented) at patient's floor/unit and/or counseling patient: Coding Level of Care Code 52854 SUB INP/OBS CARE 235MIN Diagnoses Status post lumbar spinal fusion Z98.1 DVT (deep venous thrombosis) I82.409 CAD (coronary artery disease) I25.10 Hypertension I10 Hyperlipidemia E78.5 Tobacco abuse Z72.0
[2023-03-30 06:50] LABS: Hematocrit (blood only) 28.1 % (42.0-52.0); Hemoglobin 9.7 g/dl (14.0-18.0); Mean Corpuscular Hemoglobin 32.4 pg (25.0-34.0); Mean Corpuscular Hgb Conc 34.5 g/dL (32.0-36.0); Mean Platelet Volume 9.9 fL (9.4-12.4); Platelet Count 167 K/uL (130-400); RDW Coefficient of Variation 12.4 % (11.5-14.5); RDW Standard Deviation 42.8 fL (36.4-46.3); Red Blood Count 2.99 M/uL (4.70-6.10); White Blood Count 8.72 K/ul (4.8-10.8)
[2023-03-30 07:09] LABS: BUN Creatinine Ratio 15.4 (10-20); Calcium 8.2 mg/dl (8.6-10.3); Creatinine Clr Calc Pharmacy 149.5 ml/min; Est GFR (African American) 121.7 ml/min; Potassium 3.8 mmol/L (3.5-5.1)
--- NOTE | 2023-03-30 10:33 | Orthopedic Progress Note ---
Date of Service March 30, 2023 Assessment & Plan (1) Neurogenic claudication due to lumbar spinal stenosis: Plan: At this time continue physical therapy monitor DERECK output anticipate discharge home this weekend. Admission and Anticipated Discharge Date Admission Date: March 28, 2023 Subjective Back pain controlled leg pain improved Physical Exam Physical Exam: Patient is in the chair at the bedside. Is comfortable. Is for strength test ing. Results & Data Vital Signs (Past 12 Hours) Vital Signs Temp Pulse Pulse Resp BP BP Pulse Ox 03/30/23 09:00 81 156/79 H 03/30/23 08:13 37.2 C 67 18 162/72 H 97 O2 Del Method 03/30/23 09:00 03/30/23 08:13 Room Air Queries Orthopedic Spine Obesity: Yes
--- NOTE | 2023-03-30 14:51 | Hospitalist Progress Note ---
Date of Service March 30, 2023 Assessment & Plan (1) Status post lumbar spinal fusion: Plan: -Patient is currently Post-op day #0 S/P L2-S1 Decompression and Fusion with Dr. De Leon -Pain control, perioperative abx, DVT PPX, and IV fluids per the primary team -Patient was noted to have approximately 650 CC of EBL per the operative report and is having increased drainage at the surgical site per nursing staff, primary team has been made aware -He has been stable since arrival to the floor and has been able to ambulate with the use of a rolling walker without issue -He had as dose of 81 mg Aspirin this am and is scheduled to be give 81 mg Aspirin tomorrow per the primary team's orders -Patient is high risk for blood clots with his previous hx of DVT/PE and current smoking status, would recommend restarting Xarelto when he is stable from a ble eding perspective -Agree with AM CBC and BMP tomorrow, we will follow -Please reach out with any questions or concerns, medicine will continue to follow (2) DVT (deep venous thrombosis): Plan: -Previous DVT in 2019; see HPI -Continue DVT PPX per primary team orders -Monitor closely for post-operative DVT moving forward and restart Xarelto when patient is stable from a bleeding risk (3) CAD (coronary artery disease): Plan: -S/P CABG x 2 in 2009 -Denies recent chest pain -Continue Aspirin and statin (4) Hypertension: Plan: -Stable -Will hold home lisinopril for now to avoid post-operative hypotension -Will continue BID diltiazem (5) Hyperlipidemia: Plan: -Conitnue statin (6) Tobacco abuse: Plan: - Nicotine patches -Continue to stress the importance of cessation -Incentive spirometry and prn albuterol ordered at the time of the consult Plan The patient is doing well, had a low BP this morning, BP meds on hold, IV fluids were given. Monitor CBC, has blood loss anemia, start iron, transfuse PRN Admission and Anticipated Discharge Date Admission Date: March 28, 2023 Subjective Back pain controlled leg pain improved Review of Systems Review of Systems: reports feeling better , denies numbness, ambulated with PT Physical Exam Physical Exam: General: In no acute distress, stated age, chronically ill appearing but non- toxic HEENT: Normocephalic, atraumatic, no scleral icterus, pupils around round, symmetrical, and reactive to light, moist mucus membranes, trachea midline, no thyromegaly Chest/Pulm: No respiratory distress, symmetrical chest expansion, scattered expiratory wheezing Cardiac: RRR, 3/6 systolic murmur noted Abdomen: Negative for ascites and bruising, normoactive bowel sounds, soft, non- tender to palpation throughout : Bailon cath in place, currently draining clear, yellow urine Musculoskeletal: Lower lumbar surgical site is currently bandaged with the lower 1/3 of the bandage soaked in blood, drain is currently in place and approximately 1/2 full Extremities: Radial, dorsalis pedis, and posterior tibial pulses are intact and symmetrical, no edema noted in the [facility] Skin: No other trauma noted on exam Neuro: Alert and oriented to person, place, month, year, and president, no focal defects, no tremors noted, intact and symmetrical sensation and motor function in the [facility] Psych: No acute distress, calm and cooperative during the exam Results & Data Results & Data Vital Signs (Past 12 Hours) Vital Signs Temp Pulse Pulse Resp BP BP Pulse Ox 03/30/23 12:06 37 C 67 14 132/72 96 03/30/23 09:00 81 156/79 H 03/30/23 08:13 37.2 C 67 18 162/72 H 97 O2 Del Method 03/30/23 12:06 Room Air 03/30/23 09:00 03/30/23 08:13 Room Air PG Care Time/CCT Total # of Minutes Spent Total Time Spent with Patient: Total time spent is greater than 50% in coordination of care (as documented) at patient's floor/unit and/or counseling patient: Coding Level of Care Code 59233 SUB INP/OBS CARE 2/35MIN Diagnoses Status post lumbar spinal fusion Z98.1 DVT (deep venous thrombosis) I82.409 CAD (coronary artery disease) I25.10 Hypertension I10 Hyperlipidemia E78.5 Tobacco abuse Z72.0
[2023-03-30] MEDS: LOPERAMIDE HCL 2 MG CAP PO STA (21:58)
[2023-03-31] MEDS: LOPERAMIDE HCL 2 MG CAP PO PRN (07:35)
[2023-03-31 07:51] LABS: BUN Creatinine Ratio 14.3 (10-20); Calcium 8.3 mg/dl (8.6-10.3); Creatinine Clr Calc Pharmacy 173.6 ml/min; Est GFR (African American) 129.4 ml/min; Est GFR (Non-African American) 111.6 ml/min; Potassium 3.6 mmol/L (3.5-5.1)
--- NOTE | 2023-03-31 08:42 | Orthopedic Progress Note ---
Date of Service March 31, 2023 Assessment & Plan (1) Neurogenic claudication due to lumbar spinal stenosis: Plan: Mal is postoperative day 3 status post L2-S1 decompression and fusion. Will work on pain control today. Continue with physical therapy. DVT prophylaxis is in the form teds and SCDs. DERECK drain output is still high. Will maintain. Might have to discharge him home with DERECK intact. Anticipate discharge home tomorrow. Admission and Anticipated Discharge Date Admission Date: March 28, 2023 Subjective Mal is postoperative day 3 status post L2-S1 decompression and fusion. He has a little bit more back pain today and had some diarrhea overnight. DERECK drain output last shift was 60 cc. Yesterday in physical therapy ambulating 220 feet. Review of Systems Review of Systems: All systems reviewed & are unremarkable except as noted in HPI & below Physical Exam Physical Exam: He is sitting up eating breakfast in no acute distress alert and oriented x 3 lumbar dressing is clean dry and intact with functioning DERECK drain calf soft nontender bilaterally Strength intact bilateral lower extremities Results & Data Vital Signs (Past 12 Hours) Vital Signs Temp Pulse Resp BP BP Pulse Ox O2 Del Method 03/31/23 08:36 61 126/65 03/31/23 07:44 Room Air 03/31/23 07:19 36.4 C L 52 L 16 147/67 H 98 Room Air Queries Orthopedic Spine Obesity: Yes
[2023-03-31] MEDS: lisinopril 20 MG TAB PO SCH (08:45)
--- NOTE | 2023-03-31 14:43 | Hospitalist Progress Note ---
Date of Service March 31, 2023 Assessment & Plan (1) DVT (deep venous thrombosis): Plan: -Previous DVT in 2019; see HPI -Continue DVT PPX per primary team orders -Monitor closely for post-operative DVT moving forward and restart Xarelto when patient is stable from a bleeding risk (2) CAD (coronary artery disease): Plan: -S/P CABG x 2 in 2009 -Denies recent chest pain -Continue Aspirin and statin (3) Hypertension: Plan: -Stable -Will continue BID diltiazem restart Lisinopril (4) Hyperlipidemia: Plan: -Conitnue statin (5) Tobacco abuse: Plan: - Nicotine patches -Continue to stress the importance of cessation -Incentive spirometry and prn albuterol ordered at the time of the consult Plan The patient is doing well, had a low BP this morning, BP meds on hold, IV fluids were given. Monitor CBC, has blood loss anemia, start iron, transfuse PRN Admission and Anticipated Discharge Date Admission Date: March 28, 2023 Subjective Mal is postoperative day 3 status post L2-S1 decompression and fusion. He has a little bit more back pain today and had some diarrhea overnight. DERECK drain output last shift was 60 cc. Yesterday in physical therapy ambulating 220 feet. 2/10 reports severe diarrhea Review of Systems Review of Systems: reports feeling better , denies numbness, ambulated with PT , severe diarrhea last night Physical Exam Physical Exam: General: In no acute distress, stated age, chronically ill appearing but non- toxic HEENT: Normocephalic, atraumatic, no scleral icterus, pupils around round, symmetrical, and reactive to light, moist mucus membranes, trachea midline, no thyromegaly Chest/Pulm: No respiratory distress, symmetrical chest expansion, scattered expiratory wheezing Cardiac: RRR, 3/6 systolic murmur noted Abdomen: Negative for ascites and bruising, normoactive bowel sounds, soft, non- tender to palpation throughout : Bailon cath in place, currently draining clear, yellow urine Musculoskeletal: Lower lumbar surgical site is currently bandaged with the lower 1/3 of the bandage soaked in blood, drain is currently in place and approximately 1/2 full Extremities: Radial, dorsalis pedis, and posterior tibial pulses are intact and symmetrical, no edema noted in the BL LE's Skin: No other trauma noted on exam Neuro: Alert and oriented to person, place, month, year, and president, no focal defects, no tremors noted, intact and symmetrical sensation and motor function in the BL LE's Psych: No acute distress, calm and cooperative during the exam Results & Data Results & Data Vital Signs (Past 12 Hours) Vital Signs Temp Pulse Resp BP BP Pulse Ox O2 Del Method 03/31/23 08:36 61 126/65 03/31/23 07:44 Room Air 03/31/23 07:19 36.4 C L 52 L 16 147/67 H 98 Room Air PG Care Time/CCT Total # of Minutes Spent Total Time Spent with Patient: Total time spent is greater than 50% in coordination of care (as documented) at patient's floor/unit and/or counseling patient: Coding Level of Care Code 69671 SUB INP/OBS CARE 2/35MIN Diagnoses DVT (deep venous thrombosis) I82.409 CAD (coronary artery disease) I25.10 Hypertension I10 Hyperlipidemia E78.5 Tobacco abuse Z72.0
[2023-04-01 06:34] LABS: Hematocrit (blood only) 26.9 % (42.0-52.0); Hemoglobin 9.4 g/dl (14.0-18.0); Mean Corpuscular Hemoglobin 32.4 pg (25.0-34.0); Mean Corpuscular Hgb Conc 34.9 g/dL (32.0-36.0); Mean Corpuscular Volume 92.8 fL (80.0-100.0); Mean Platelet Volume 10.3 fL (9.4-12.4); Platelet Count 182 K/uL (130-400); RDW Coefficient of Variation 12.2 % (11.5-14.5); RDW Standard Deviation 41.6 fL (36.4-46.3)
[2023-04-01 06:54] LABS: BUN Creatinine Ratio 12.3 (10-20); Calcium 8.5 mg/dl (8.6-10.3); Creatinine Clr Calc Pharmacy 170.5 ml/min; Est GFR (African American) 128.5 ml/min; Est GFR (Non-African American) 110.8 ml/min; Magnesium 1.9 mg/dl (1.7-2.4); Potassium 3.9 mmol/L (3.5-5.1)
--- NOTE | 2023-04-01 08:32 | Discharge Summary ---
Date of Service April 01, 2023 Admission HPI Per Admitting Provider This is a 63-year-old male who presents for chronic persistent back and leg pain and failing since course of nonoperative care is here for surgical invention. Admission Exam (Per Admitting) Constitutional WD/WN, vitals as above Eyes normal visual woodard by confrontation ENMT external ear and nose normal, oropharynx normal Neck normal visual inspection Respiratory normal respiratory effort Cardiovascular Extremities: normal capillary refill Gastrointestinal (Abdomen) Inspection/Auscultation: abdomen normal to inspection Musculoskeletal Spine: + pain with thoraco-lumbar ROM Extremities: extremities normal to inspection and strength 5/5 throughout Skin no rashes, warm and dry Neurologic normal touch/pain/proprioception and moves all extremities Psychiatric A+Ox3, euthymic affect Eye Contact: good eye contact Discharge Data Consultations 03/28/23 13:46 Consult Hospitalist Routine Procedures Performed Operation Date: 03/28/23 07:45 Actual Procedures p L2-S1 Decompression and Fusion, Spinal Cord Monitoring(Not Applicable) - Travis De Leon, Hospital Course (1) Neurogenic claudication due to lumbar spinal stenosis: Mal is being discharged home on postoperative day 4 status post L2-S1 decompression and instrumented fusion. He had an uneventful hospital course. Lab values have been stable. Pain is controlled. He had a bowel movement. He is making daily progress in physical therapy. Patient is being discharged home with DERECK drain due to high output. Instructions have been provided for follow-up with this. Discharge Instructions ACTIVITY RECOMMENDATIONS: SELF CARE INSTRUCTIONS AFTER THORACIC/LUMBAR FUSIONS 1. You may walk to your tolerance. It is good exercise for your legs and back. Expect some back and intermittent leg aches and pains. 2. You may perform "counter-top" level activities (make a sandwich, anna with a project, etc.). 3. No bending or lifting of more than 10 pounds or back twisting of any nature (roll like a log when turning in bed). 4. You may ride in a car for 20-30 minutes at a time. No driving until after your first visit with your doctor. 5. Frequent changes of position and restricting sitting to 30 minutes at a time will help limit the amount of back spasms and stiffness you may experience. 6. You may discontinue the use of ambulatory aids (cane, crutches, etc.) once your strength and confidence allow. 7. You may standpipe tender the shower and let water strike your incision when you arrive home at least once daily. Do not take a tub bath, sit in a hot tub or go into a swimming pool until after your first recheck in the office. SPECIAL CARE INSTRUCTIONS: VERY IMPORTANT TO READ AND REVIEW A. Your surgical incision has been closed with a cosmetic suture under the skin that will dissolve in about 6 weeks. In 14 days, you can use a pair of clean scissors and cut the suture that is left outside of the skin at the ends of your incision. 1. The small skin tapes can be removed 7 days after surgery if they have not fallen off by that point. 2. You may keep the wound open to air as much as possible to promote healing after post-op day number 5 unless told otherwise by your doctor. 3. If you think the wound looks like it is becoming infected (redness or worsening drainage) and/or you are experiencing fever, chill or worsening back pain and muscle spasms, contact the office so that we may evaluate you as soon as possible. B. Complications are uncommon, but please contact us if you have any signs or symptoms of: 1. wound infection (fever higher than 102.5 degrees F, redness, separation of wound, drainage, or increasing pain from the incision) 2. blood clots in legs (pain, swelling, redness and warmth in legs) 3. urinary tract infection (fever higher than 102.5 degrees F, burning upon urination or increased frequency of urination) 4. nerve problems (inability to walk on your toes or heels, numbness, loss of bowel or bladder control) 5. any other symptoms that concern you C. Please call the office at if you have any concerns or questions about your operation or recovery. D. No smoking! Smoking drastically decreases the chance of a solid fusion. E. Do not take any anti-inflammatory medications (Indocin, Advil, Motrin, Aspirin, Naprosyn, etc.) as these may inhibit the chance of a solid fusion. Tylenol is okay to take for pain. MANAGING PAIN AFTER SPINAL SURGERY 1. Narcotic medication is intended for short-term use and will be provided for surgical pain. Surgical pain usually lasts for a period of 4-6 weeks. Narcotic medication includes Percocet, Vicodin, Darvocet, Tylenol #3 or Lortab. 2. Longer-term pain is more appropriately treated with non-narcotic medication such as Tylenol ES. 3. Muscle spasm is not appropriately treated with narcotics. Muscle relaxers such as Soma, Flexeril or Skelaxin can be used along with Tylenol ES. 4. Remember that we all live with some "aches and pains". This is not unusual or uncommon after an injury or as we get older. a. Back pain is expected and may include muscle spasms for 4 to 6 weeks after surgery. The pain should gradually improve. If the pain worsens for no apparent reason, please contact the office. b. Intermittent leg pain may also be experienced and should not be concerned about unless it worsens for no apparent reason. If so, please contact the office. 5. We will provide appropriate medication within the normal guidelines of their prescribed use. We will also be very cautious and aware of potential abuse and extended duration of patients' medication needs. a. Pain medications are for your comfort and to assist with sleep and rest so that the tissue can heal. They are not provided in order to return to normal activity and should not be used through the day. To do so or worsening pain at night can result from ongoing tissue damage and development of tolerance to the prescribed medicine. 6. Please allow 2-3 days to process refills. Prescriptions will not be mailed but must be picked up at the office. FOLLOW UP VISIT: Keep your scheduled follow-up appointment. Any questions, please call the office at .
--- NOTE | 2023-04-01 13:59 | Hospitalist Progress Note ---
Date of Service April 01, 2023 Assessment & Plan (1) DVT (deep venous thrombosis): Plan: -Previous DVT in 2019; see HPI -Continue DVT PPX per primary team orders -Monitor closely for post-operative DVT moving forward and restart Xarelto when patient is stable from a bleeding risk (2) CAD (coronary artery disease): Plan: -S/P CABG x 2 in 2009 -Denies recent chest pain -Continue Aspirin and statin (3) Hypertension: Plan: -Stable -Will continue BID diltiazem restart Lisinopril (4) Hyperlipidemia: Plan: -Conitnue statin (5) Tobacco abuse: Plan: - Nicotine patches -Continue to stress the importance of cessation -Incentive spirometry and prn albuterol ordered at the time of the consult Plan The patient is doing well, had a low BP this morning, BP meds on hold, IV fluids were given. Monitor CBC, has blood loss anemia, start iron, transfuse PRN 04/01 stable for discharge, restart anticoagulation tonight Admission and Anticipated Discharge Date Admission Date: March 28, 2023 Subjective Mal is postoperative day 3 status post L2-S1 decompression and fusion. He has a little bit more back pain today and had some diarrhea overnight. DERECK drain output last shift was 60 cc. Yesterday in physical therapy ambulating 220 feet. 03/31 reports severe diarrhea 04/01 reports feeling better Review of Systems Review of Systems: reports feeling better , denies numbness, ambulated with PT , severe diarrhea resolved Physical Exam Physical Exam: General: In no acute distress, stated age, chronically ill appearing but non- toxic HEENT: Normocephalic, atraumatic, no scleral icterus, pupils around round, symmetrical, and reactive to light, moist mucus membranes, trachea midline, no thyromegaly Chest/Pulm: No respiratory distress, symmetrical chest expansion, scattered expiratory wheezing Cardiac: RRR, 3/6 systolic murmur noted Abdomen: Negative for ascites and bruising, normoactive bowel sounds, soft, non- tender to palpation throughout : Bailon cath in place, currently draining clear, yellow urine Musculoskeletal: Lower lumbar surgical site is currently bandaged with the lower 1/3 of the bandage soaked in blood, drain is currently in place and approximately 1/2 full Extremities: Radial, dorsalis pedis, and posterior tibial pulses are intact and symmetrical, no edema noted in the BL LE's Skin: No other trauma noted on exam Neuro: Alert and oriented to person, place, month, year, and president, no focal defects, no tremors noted, intact and symmetrical sensation and motor function in the LE's Psych: No acute distress, calm and cooperative during the exam Results & Data Results & Data Vital Signs (Past 12 Hours) Vital Signs Temp Pulse Resp BP Pulse Ox O2 Del Method 04/01/23 07:30 Room Air 04/01/23 07:24 37.1 C 62 16 122/69 95 Room Air PG Care Time/CCT Total # of Minutes Spent Total Time Spent with Patient: Total time spent is greater than 50% in coordination of care (as documented) at patient's floor/unit and/or counseling patient: Coding Level of Care Code 59217 SUB INP/OBS CARE 2/35MIN Diagnoses DVT (deep venous thrombosis) I82.409 CAD (coronary artery disease) I25.10 Hypertension I10 Hyperlipidemia E78.5 Tobacco abuse Z72.0
--- NOTE | 2023-04-03 14:53 | Coding Query ---
acute blood loss ANEMIA To promote full compliance with coding requirements relating to patient care, physician participation is requested in all cases of power superintendent uncertainty. Please assist us with the question(s) below: Coding Question(s): The record reflects the following clinical findings: Hospitalist Progress Notes 03/29 - 04/01 document, " Monitor CBC, has blood loss anemia, start iron, transfuse PRN". Please specify below, in your clinical opinion, regarding Blood Loss Anemia. If these findings are indicative of anemia, please specify the known or suspected type by placing an "X" within the parenthesis (x). If other, please document type. Examples are: ( x) Acute blood loss anemia ( ) Acute Postoperative blood loss anemia ( ) Acute postoperative anemia due to dilutional fluids ( ) Chronic blood loss anemia ( ) Anemia of chronic disease ( ) Aplastic anemia ( ) Anemia due to renal disease ( ) Anemia in neoplastic disease ( ) Iron deficient anemia ( ) Anemia, unspecified or other ( ) Other: (please specify) Thank you Cassy MEYER
--- NOTE | 2023-05-02 12:48 | Hospitalist Progress Note ---
Date of Service May 02, 2023 Assessment & Plan Admission and Anticipated Discharge Date Admission Date: March 28, 2023 PG Care Time/CCT Total # of Minutes Spent Total Time Spent with Patient: Total time spent is greater than 50% in coordination of care (as documented) at patient's floor/unit and/or counseling patient: Coding
== END 2023-04-01 12:49 | disposition home or self-care (01) | DRG 454 ==
LOC: ASU 06:02 → PACUINP 11:38 → 3E 14:59